=== PATIENT | female | born 2000 | race Caucasian/White ===

== ENCOUNTER 2021-11-20 14:20 | Emergency (ER) | payer OTHER ==
[2021-11-20 14:32] VITALS: BP 127/64; PULSE 71; TEMP 98.7; BMI 18.6
[2021-11-20] MEDS ORDERED: ACETAMINOPHEN 325 MG TABLET (FP) PO ONE (15:39)
[2021-11-20] MEDS ORDERED: ACETAMINOPHEN 325 MG TABLET (FP) ONE (15:46)
== END 2021-11-20 15:52 | disposition home or self-care (01) ==
LOC: FER 14:20
DX: R55 Syncope and collapse (principal)
CPT/HCPCS: 70450-TC; 81025; 93005; 99284-25

== ENCOUNTER 2021-11-29 21:02 | Emergency (ER) | payer OTHER ==
[2021-11-29 21:14] VITALS: BP 120/70; PULSE 75; RESP 16; TEMP 98.9; BMI 18.6
== END 2021-11-29 23:41 | disposition home or self-care (01) ==
LOC: FER 21:02
DX: R11.10 Vomiting, unspecified (principal); F07.81 Postconcussional syndrome
CPT/HCPCS: 70450-TC; 84703; 99284-25